=== PATIENT | male | born 1970 | race Caucasian/White ===

== ENCOUNTER → 2017-11-13 | Outpatient (CLI) | payer OTHER ==
[~2017-11-13] MED LIST: ALBIPROI INH; AMOX875 PO; AMPDEX5; BENZ100A PO; CARI350 PO; CEPH500 PO; CODACE30 PO; CODGUAEL PO; CYCL10 PO; ERYES400 PO; HYDACE5 PO; HYDR1TAB94 PO; IBUP600 PO; IBUP800 PO; METPRE4DP PO; NAPR550 PO; Naprosyn500 MG PO; Norco 5-325 Ta1 EACH PO; PENVK500 PO; PRED20 PO; Penicillin V P500 MG PO; Prednisone20 MG PO; RXOXYACE PO; SULTRIDS PO; TRAM50 PO; Ultram50 MG PO
== END ==
LOC: LAB 18:09
DX: L03.114 Cellulitis of left upper limb (principal); L03.113 Cellulitis of right upper limb
CPT/HCPCS: 87070; 87205

== ENCOUNTER → 2018-05-29 | Outpatient (CLI) | payer OTHER | LOC: LAB SRC 15:37 → LAB SHORT 15:37 | DX: Z51.81 Encounter for therapeutic drug level monitoring (principal); Z79.899 Other long term (current) drug therapy | CPT/HCPCS: G0480 ==

== ENCOUNTER → 2019-12-02 | Outpatient (CLI) | payer OTHER | END | disposition home or self-care (01) | LOC: LAB SHORT 12:00 → LAB 12:00 | DX: L03.011 Cellulitis of right finger (principal) | CPT/HCPCS: 87070; 87075; 87077; 87147; 87186; 87205 ==

== ENCOUNTER 2019-12-03 18:00 | Emergency (ER) | payer OTHER | END 2019-12-03 19:30 | disposition left against medical advice (07) | LOC: ER 18:00 | DX: Z53.21 Procedure and treatment not carried out due to patient leaving prior to being seen by health care provider (principal) ==

== ENCOUNTER 2020-01-29 03:05 | Emergency (ER) | payer OTHER ==
[~2020-01-29] VITALS: Ht 177.8 cm; Wt 80.3 kg
[2020-01-29] MEDS ORDERED: NARCAN4 MG (04:32)
== END 2020-01-29 04:36 | disposition home or self-care (01) ==
LOC: ER 03:05
DX: T40.1X1A Poisoning by heroin, accidental (unintentional), initial encounter (principal); F17.210 Nicotine dependence, cigarettes, uncomplicated
CPT/HCPCS: 99285